=== PATIENT | male | born 1995 | race Caucasian/White ===

== ENCOUNTER 2020-03-15 16:17 | Emergency (ER) | payer OTHER, SELFPAY ==
--- NOTE | ~2020-03-15 | XR_ITS ---
XR ankle LT min 3V DATE: 03/15/2020 16:34 INDICATION: Struck with hockey puck. Medial pain TECHNIQUE: 4 views COMPARISON: None FINDINGS: No fracture or dislocation of the ankle or disruption of the ankle mortise. No periosteal r eaction or bone destruction. IMPRESSION: No fracture or dislocation Reviewed, dictated and finalized at location A. IMPRESSION: No fracture or dislocation
[2020-03-15 16:24] VITALS: BP 127/66; PULSE 95; RESP 12; TEMP 37.1; O2SAT 99
--- NOTE | 2020-03-15 16:32 | ED.GENADULT ---
HPI - General Adult General Chief complaint: Extremity Injury, Lower Stated complaint: INJURED L ANKLE Time Seen by Provider: 03/15/20 16:32 Source: patient and RN notes reviewed Mode of arrival: ambulatory Limitations: no limitations History of Present Illness HPI narrative: 24-year-old male presents with complains of tenderness to the left ankle for 1 day. Madai says he was hit in the ankle with a hockey puck at approximately 10:45 this morning while playing hockey. No treatment. No radiating pain. No numbness or tingling or loss of mobility. Denies inability to bear weight. Exacerbation factor consist of movement and palpation. No relieving factors. Denies discoloration. Denies altered sensation, back pain, neck pain, and suspected foreign body. Remains active. The patient reports he have not been diagnosed with COVID-19. The patient reports he is not waiting for the results of a COVID-19 lab test. The patient reports he do not have fever, chills, weakness, or fatigue. The patient reports he do not have a new or worsening cough or shortness of breath. Denies chest pain. The patient reports he do not have any rhinorrhea, congestion, loss of taste, sore throat, nausea, vomiting, abdominal pain, and diarrhea. Tolerating po intake well. Denies recent traveling. Denies concerns for COVID-19 or exposures been home with limited outdoor exposure except for essential household needs and return home. At this time, patient is not suspected of having COVID-19. Some parts of this dictation were generated by voice recognition software and may contain typographical and/or grammatical inaccuracies. Related Data Home Medications Medication Instructions Recorded Confirmed sertraline 200 mg PO DAILY 03/15/20 03/15/20 trazodone 50 mg PO HS 03/15/20 03/15/20 Allergies Allergy/AdvReac Type Severity Reaction Status Date / Time No Known Allergies Allergy Unknown Verified 03/15/20 16:27 Review of Systems Review of Systems: Narrative: CONSTITUTIONAL: Denies fever, chills, sweats. EYES: Denies visual changes, redness, discharge. ENT: Denies rhinorrhea, congestion, sore throat, otalgia. CARDIOVASCULAR: Denies chest pain, palpitations, edema. RESPIRATORY: Denies dyspnea, wheezing, cough GASTROINTESTINAL: Denies abdominal pain, nausea, vomiting, diarrhea. GENITOURINARY: Denies dysuria, hematuria, abnormal discharge SKIN: Denies rash or itching. MUSCULOSKELETAL: Denies acute back pain or myalgia. Complains of LT ankle pain. NEUROLOGIC: Denies numbness or focal weakness. PSYCHIATRIC: Denies anxiety or depression. All other systems reviewed & are unremarkable except as noted in HPI and below. [facility] Past Medical History Medical History (Updated 03/16/20 @ 00:00 by Loren Bishop) Anxiety Surgical History Surgical History (Updated 03/16/20 @ 13:19 by NAYELI Manrique) History of tonsillectomy Family History Family History (Updated 03/15/20 @ 17:52 by NAYELI Manrique) Father Alive and well Mother Alive and well Social History Social History (Updated 03/15/20 @ 17:53 by NAYELI Manrique) Smoking status: Never smoker Tobacco type: cigarettes Second hand tobacco smoke exposure: Yes Alcohol intake: never Substance use: current Substance use type: marijuana Living arrangements: with family Occupation/Education: unemployed Gender identity (if verbalized by the patient): Male Comments At time of signature, agree with nurse past medical, surgical, social, and family history. There is no relevant family history pertinent to the presenting complaint. Exam Narrative: Exam Narrative: GENERAL: This is a well-nourished, well-developed patient, in no apparent distress. Talks in full sentences without deficits and ambulates with sight LT antalgic gait without dyspnea. HEAD: normocephalic, atraumatic. EYES: PERRL. Sclera clear/white. Vision is grossly intact. NECK: Neck supple, n
== END 2020-03-15 16:53 | disposition home or self-care (01) ==
PROVIDERS: Emergency Provider Nurse Practitioner Family
DX: S93.402A Sprain of unspecified ligament of left ankle, initial encounter (principal); W21.220A Struck by ice hockey puck, initial encounter; F41.9 Anxiety disorder, unspecified
CPT/HCPCS: 73610; 99203; G0463